=== PATIENT | male | born 1985 | race Caucasian/White ===

== ENCOUNTER 2016-12-16 01:59 | Emergency (ER) | payer BC ==
[2016-12-16 02:05] VITALS: BP 156/106
--- NOTE | 2016-12-16 02:19 | EDM.PDOC ---
ED HPI GENERAL MEDICAL PROBLEM - General Chief Complaint: Chest Pain Stated Complaint: CHEST PAIN Time Seen by Provider: 12/16/16 02:17 - History of Present Illness INITIAL COMMENTS - FREE TEXT/NARRATIVE: 31-year-old male presents emergency room with chest pain. This chest pain started around 11:00 this evening. The patient has not been feeling good for the last several days starting Wednesday evening he was feeling generally weak and tired and achy all over. When he noticed the most was leg pain however this was bilateral he did not have any leg swelling in his seem to be worse around his knees. He has not developed any redness. The patient is unaware of any recent tick bites or other exposures. The patient was seen in the walk-in clinic earlier today were he states he had a normal chest x-ray rapid strep was negative and influenza screen was negative. Left Chest Pain Score (Numeric/FACES): 6 - Related Data Allergies Allergy/AdvReac Type Severity Reaction Status Date / Time azithromycin Allergy Hives Verified 12/16/16 02:06 erythromycin base Allergy Hives Verified 12/16/16 02:06 Home Meds: Home Meds Levofloxacin [Levaquin] 500 mg PO Q24H #9 tablet 12/16/16 [Rx] Past Medical History - Past Health History Medical/Surgical History: Denies Medical/Surgical History - Past Surgical History HEENT Surgical History: Reports: Tonsillectomy Social & Family History - Tobacco Use Smoking Status *Q: Current Some Day Smoker Years of Tobacco use: 10 Packs/Tins Daily: 0 ED ROS GENERAL - Review of Systems Review Of Systems: See Below Constitutional: Reports: Malaise, Weakness HEENT: Reports: Rhinitis Respiratory: Reports: Pleuritic Chest Pain, Cough. Denies: Sputum Cardiovascular: Reports: Chest Pain. Denies: Dyspnea on Exertion, Edema Endocrine: Reports: No Symptoms GI/Abdominal: Reports: No Symptoms : Reports: No Symptoms Musculoskeletal: Reports: Leg Pain Skin: Reports: No Symptoms Neurological: Reports: No Symptoms Psychiatric: Reports: No Symptoms ED EXAM, GENERAL - Physical Exam Exam: See Below Exam Limited By: No Limitations General Appearance: Alert, No Apparent Distress Ears: Normal External Exam, Normal Canal, Hearing Grossly Normal, Normal TMs Nose: Normal Inspection, Normal Mucosa Throat/Mouth: Normal Inspection, Normal Lips Head: Atraumatic, Normocephalic Neck: Normal Inspection, Supple, Non-Tender, Full Range of Motion. No: Lymphadenopathy (L), Lymphadenopathy (R) Respiratory/Chest: No Respiratory Distress, Other (Diminished breath sounds in both bases no wheezes crackles or rhonchi.) GI/Abdominal: Normal Bowel Sounds, Soft, Non-Tender Back Exam: Normal Inspection. No: CVA Tenderness (L), CVA Tenderness (R) Extremities: Other (Both calves are more tender than would expect with palpation no obvious swelling no redness or warmth appreciated) EKG INTERPRETATION EKG Date: 12/16/16 Time: 04:25 Rhythm: NSR [place]: Normal P-Wave: Present QRS: Normal ST-T: Other (Nonspecific nondiagnostic changes) QT: Normal Comparison: NA - No Prior EKG Course - Vital Signs Last Recorded V/S: Last Vital Signs Temp 36.9 C 12/16/16 02:02 Pulse 117 H 12/16/16 02:02 Resp 18 12/16/16 02:02 BP 156/106 H 12/16/16 02:02 Pulse Ox 92 L 12/16/16 02:02 - Orders/Labs/Meds Orders: Active Orders 24 hr Category Date Time Status EKG 12 Lead [EKG Documentation Completion] [RC] STAT Care 12/16/16 02:03 Active Ang Chest [CT] Stat Exams 12/16/16 02:30 Taken Chest 1V Frontal [CR] Stat Exams 12/16/16 02:09 Taken Sodium Chloride 0.9% [Normal Saline] 1,000 ml Med 12/16/16 02:45 Active IV ASDIRECTED Sodium Chloride 0.9% [Saline Flush] Med 12/16/16 03:04 Active 10 ml FLUSH ONETIME PRN Medication Orders Sodium Chloride (Normal Saline) 1,000 mls @ 100 mls/hr IV ASDIRECTED CJ Last Admin: 12/16/16 02:38 Dose: 100 mls/hr Sodium Chloride (Saline Flush) 10 ml FLUSH ONETIME PRN PRN Reason: IV Flush Labs: Laboratory Tests 12/16/16 12/16/16 12/16/16 Range/Units 02:05 02:05 02:05 WBC 14.72 H (4.23-9.07) K/mm3 RBC 5.27 (4.63-6.08) M/mm3 Hgb 15.5 (13.7-17.5) gm/L Hct 46.6 (40.1-51.0) % MCV 88.4 (79.0-92.2) fl MCH 29.4 (25.7-32.2) pg MCHC 33.3 (32.2-35.5) g/dl RDW Std Deviation 43.6 (35.1-43.9) fL Plt Count 164 (163-337) K/mm3 MPV 11.0 (9.4-12.3) fl Neutrophils % (Manual) 76 H (40-60) % Band Neutrophils % 1 (0-10) % Lymphocytes % (Manual) 13 L (20-40) % Atypical Lymphs % 0 % Monocytes % (Manual) 9 (2-10) % Eosinophils % (Manual) 1 (0.8-7.0) % Basophils % (Manual) 0 L (0.2-1.2) Platelet Estimate Adequate RBC Morph Comment Normal PT 11.0 (8.0-13.0) SECONDS INR 1.01 APTT 29 (22-36) SECONDS Sodium 137 (136-145) mEq/L Potassium 3.5 (3.5-5.1) mEq/L Chloride 100 (98-107) mEq/L Carbon Dioxide 24 (21-32) mEq/L Anion Gap 16.5 H (5-15) BUN 15 (7-18) mg/dL Creatinine 1.1 (0.7-1.3) mg/dL Est Cr Clr Drug Dosing 99.55 mL/min Estimated GFR (MDRD) > 60 (>60) mL/min BUN/Creatinine Ratio 13.6 L (14-18) Glucose 157 H (74-106) mg/dL Calcium 9.0 (8.5-10.1) mg/dL Total Bilirubin 0.8 (0.2-1.0) mg/dL AST 13 L (15-37) U/L ALT 36 (16-63) U/L Alkaline Phosphatase 97 (46-116) U/L Troponin I < 0.017 (0.00-0.056) ng/mL Total Protein 8.0 (6.4-8.2) g/dl Albumin 3.6 (3.4-5.0) g/dl Globulin 4.4 gm/dL Albumin/Globulin Ratio 0.8 L (1-2) Meds: Medications Generic Name Dose Route Start Last Admin Trade Name Timothy PRN Reason Stop Dose Admin Sodium Chloride 1,000 mls @ 100 mls/hr 12/16/16 02:45 12/16/16 02:38 Normal Saline IV 100 mls/hr ASDIRECTED CJ Administration Sodium Chloride 10 ml 12/16/16 03:04 Saline Flush FLUSH ONETIME PRN IV Flush Discontinued Medications Generic Name Dose Route Start Last Admin Trade Name Timothy PRN Reason Stop Dose Admin Sodium Chloride 500 mls @ 999 mls/hr 12/16/16 02:31 12/16/16 02:38 Normal Saline IV 12/16/16 03:01 999 mls/hr .BOLUS ONE Administration Sodium Chloride 100 mls @ 4 mls/sec 12/16/16 03:04 Normal Saline IV 12/16/16 03:05 ONETIME ONE Iopamidol 100 ml 12/16/16 03:04 Isovue-370 (76%) IVPUSH 12/16/16 03:05 ONETIME ONE Iopamidol 40 ml 12/16/16 03:04 Isovue-370 (76%) IVPUSH 12/16/16 03:05 ONETIME ONE - Re-Assessments/Exams Free Text/Narrative Re-Assessment/Exam: 12/16/16 04:04 A CTA of the chest was obtained initial chest x-ray was difficult to interpret. He has high diaphragm on the left side poor inspiratory effort. His well's score was 4.5 getting points for leg pain and tachycardia given this d-dimer was deferred and we will write to CTA the results of this are negative for a pulmonary embolism however do show areas of bibasilar atelectasis or infiltrate consistent with bibasilar pneumonia. 12/16/16 04:34 I had them repeat the EKG had several hard time measuring his QT with a wandering baseline second EKG shows a QT of 326 QTC of 435 this is much more realistic no evidence of ischemia. Patient will be started on Levaquin he was instructed on how to use an albuterol MDI and we will discharge. Departure - Departure Time of Disposition: 04:41 Disposition: Home, Self-Care 01 Clinical Impression: Chest wall pain, Pneumonia Referrals: PCP,None [Primary Care Provider] - Elva Vega, [employer] [ED Midlevel Provider] - Forms: ED Department Discharge Additional Instructions: Return to the emergency room with any questions problems worsening symptoms. Use the albuterol inhaler 2 puffs every 4 hours while awake. You have been started on Levaquin, this is an antibiotic take it once daily for 10 days your first dose was given in the emergency room. Follow-up with regular physician for recheck on Wednesday - My Orders Last 24 Hours: My Active Orders 12/16/16 02:03 EKG 12 Lead [EKG Documentation Completion] [RC] STAT 12/16/16 02:09 Chest 1V Frontal [CR] Stat 12/16/16 02:30 Ang Chest [CT] Stat 12/16/16 02:45 Sodium Chloride 0.9% [Normal Saline] 1,000 ml IV ASDIRECTED 12/16/16 03:04 Sodium Chloride 0.9% [Saline Flush] 10 ml FLUSH ONETIME PRN - Assessment/Plan Last 24 Hours: My Active Orders 12/16/16 02:03 EKG 12 Lead [EKG Documentation Completion] [RC] STAT 12/16/16 02:09 Chest 1V Frontal [CR] Stat 12/16/16 02:30 Ang Chest [CT] Stat 12/16/16 02:45 Sodium Chloride 0.9% [Normal Saline] 1,000 ml IV ASDIRECTED 12/16/16 03:04 Sodium Chloride 0.9% [Saline Flush] 10 ml FLUSH ONETIME PRN
[2016-12-16] MEDS ORDERED: Sodium Chloride 0.9% 500 ML IV ONE (02:31)
[2016-12-16] MEDS ORDERED: Sodium Chloride 0.9% 1,000 ML IV SCH (02:45)
[2016-12-16] MEDS ORDERED: Sodium Chloride 0.9% 100 ML IV ONE (03:04)
[2016-12-16] MEDS ORDERED: Iopamidol 755 Mg/ML 100 ML Bottle IVPUSH ONE (03:04)
[2016-12-16] MEDS ORDERED: Sodium Chloride 0.9% 10 ML Syringe FLUSH PRN (03:04)
[2016-12-16] MEDS ORDERED: Iopamidol 755 MG/ML 50 ML Bottle IVPUSH ONE (03:04)
[2016-12-16] MEDS ORDERED: Albuterol 6.7 GM Inhaler INH ONE (04:08)
[2016-12-16] MEDS ORDERED: Levofloxacin 500 MG Tab PO ONE (04:37)
--- NOTE | 2016-12-16 08:01 | CT ---
CT chest Technique: Multiple axial sections through the chest were obtained. Intravenous contrast was utilized. Study performed as a pulmonary angiogram protocol. Findings: Pulmonary arteries are opacified. No filling defects are seen to indicate pulmonary embolism. Mediastinum and hilar regions are unremarkable. No axillary adenopathy is seen. No pericardial thickening is seen. Small portion of the visualized upper abdominal structures are within normal limits. Increased density is identified within both lungs, worse on the left side. Upper lungs are clear. No pleural effusions are seen. Bone window settings were reviewed which appear within normal limits for the patient's age. Impression: 1. No findings of pulmonary embolism. 2. Increased density within both lung bases, with findings worse on the left side. This may represent atelectasis but difficult to exclude pneumonia if patient has infectious symptoms. Diagnostic code #3 Agree with preliminary report issued by [employer] ([facility] preliminary report dictated on 12/16/16, 4:59 AM Central Time)
--- NOTE | 2016-12-16 08:01 | CR ---
Chest: Portable view of the chest was obtained. Comparison: Previous chest x-ray of 01/30/10. Minimal left basilar atelectasis is seen. Lungs otherwise are clear. Heart size and mediastinum are normal. Bony structures are grossly intact. Impression: 1. Slight left basilar atelectasis. 2. Nothing acute is otherwise seen on portable chest x-ray. Diagnostic code #2
== END 2016-12-16 05:03 | disposition home or self-care (01) ==
LOC: JD.ED 01:59
DX: J18.9 Pneumonia, unspecified organism (principal); F17.290 Nicotine dependence, other tobacco product, uncomplicated; Z98.890 Other specified postprocedural states; Z88.1 Allergy status to other antibiotic agents
CPT/HCPCS: 36415; 71010; 71275; 80053; 84484; 85025; 85610; 85730; 93005; 94664; 96360; 96361; 99285; A9270; J7030; J7040; Q9967; 99284

== ENCOUNTER 2021-10-22 15:35 | Inpatient (IN) | payer BC ==
[2021-10-22] MEDS ORDERED: Sodium Chloride 0.9% 1,000 ML IV STA (16:05)
[2021-10-22] MEDS ORDERED: HYDROmorphone 1 MG/ML Syringe IVPUSH ONE (16:07)
[2021-10-22] MEDS ORDERED: Ondansetron 4 MG/2 ML SDV IVPUSH ONE (16:07)
[2021-10-22] MEDS ORDERED: Sodium Chloride 0.9% 10 ML Syringe FLUSH ONE (16:16)
[2021-10-22] MEDS ORDERED: Iopamidol 612 MG/ML 100 ML Bottle IVPUSH ONE (16:16)
[2021-10-22] MEDS: Sodium Chloride 0.9% 10 ML Syringe FLUSH PRN ×2 (16:29→22:36)
[2021-10-22] MEDS ORDERED: Piperacillin/Tazobactam 4.5 GM in Sodium Chloride 0.9% 100 ML IV ONE (16:53)
[2021-10-22] MEDS: Piperacillin/Tazobactam 4.5 GM in Sodium Chloride 0.9% 100 ML IV SCH ×3 (17:10→22:06)
[2021-10-22] MEDS ORDERED: Ondansetron 4 MG Tab.DIS PO PRN (18:21)
[2021-10-22] MEDS: HYDROmorphone 0.5 MG/0.5 ML Syringe IVPUSH PRN (20:30)
[2021-10-22] MEDS: Lactated Ringers 1,000 ML IV SCH (20:43)
[2021-10-22] MEDS: Acetaminophen 325 MG Tab PO PRN (20:49)
[2021-10-22] MEDS: Heparin Sodium 5,000 Units/ML Vial SUBCUT SCH (22:35)
[2021-10-23] MEDS: HYDROmorphone 0.5 MG/0.5 ML Syringe IVPUSH PRN ×2 (01:37→05:11)
[2021-10-23] MEDS: Lactated Ringers 1,000 ML IV SCH (03:26)
[2021-10-23] MEDS: Piperacillin/Tazobactam 4.5 GM in Sodium Chloride 0.9% 100 ML IV SCH ×3 (05:11→21:33)
[2021-10-23] MEDS: D5 1/2 NS w/ 20 mEq/L KCl 1,000 ML IV SCH ×2 (08:19→20:11)
[2021-10-23] MEDS: Ketorolac 30 MG/ML SDV IVPUSH SCH ×3 (08:20→20:12)
[2021-10-23] MEDS: Heparin Sodium 5,000 Units/ML Vial SUBCUT SCH ×2 (08:32→14:21)
[2021-10-23] MEDS ORDERED: Magnesium Sulfate/Water 2 GM in Premix Bag 1 BAG IV ONE (09:00)
[2021-10-24] MEDS: Ketorolac 30 MG/ML SDV IVPUSH SCH ×4 (02:33→22:11)
[2021-10-24] MEDS: Heparin Sodium 5,000 Units/ML Vial SUBCUT SCH ×4 (02:33→22:11)
[2021-10-24] MEDS: D5 1/2 NS w/ 20 mEq/L KCl 1,000 ML IV SCH ×3 (03:59→20:30)
[2021-10-24] MEDS: Piperacillin/Tazobactam 4.5 GM in Sodium Chloride 0.9% 100 ML IV SCH ×3 (05:57→22:11)
[2021-10-25] MEDS: Ketorolac 30 MG/ML SDV IVPUSH SCH ×4 (03:33→22:05)
[2021-10-25] MEDS: D5 1/2 NS w/ 20 mEq/L KCl 1,000 ML IV SCH ×3 (04:40→20:32)
[2021-10-25] MEDS: Heparin Sodium 5,000 Units/ML Vial SUBCUT SCH ×3 (05:31→22:07)
[2021-10-25] MEDS: Piperacillin/Tazobactam 4.5 GM in Sodium Chloride 0.9% 100 ML IV SCH ×3 (06:55→22:07)
[2021-10-25] MEDS: HYDROmorphone 0.5 MG/0.5 ML Syringe IVPUSH PRN (08:13)
[2021-10-25] MEDS ORDERED: Ondansetron 4 MG/2 ML SDV ONE (08:22)
[2021-10-25] MEDS: Ondansetron 4 MG/2 ML SDV IVPUSH PRN (08:27)
[2021-10-26] MEDS: Ketorolac 30 MG/ML SDV IVPUSH SCH ×4 (03:46→21:18)
[2021-10-26] MEDS: D5 1/2 NS w/ 20 mEq/L KCl 1,000 ML IV SCH ×3 (03:48→19:45)
[2021-10-26] MEDS: Heparin Sodium 5,000 Units/ML Vial SUBCUT SCH ×3 (05:54→21:19)
[2021-10-26] MEDS: Piperacillin/Tazobactam 4.5 GM in Sodium Chloride 0.9% 100 ML IV SCH ×3 (06:21→21:17)
[2021-10-26] MEDS: HYDROmorphone 0.5 MG/0.5 ML Syringe IVPUSH PRN (07:44)
[2021-10-26] MEDS: Ondansetron 4 MG/2 ML SDV IVPUSH PRN (07:49)
[2021-10-26] MEDS ORDERED: Magnesium Sulfate/Water 2 GM in Premix Bag 1 BAG IV ONE (10:41)
[2021-10-27] MEDS: D5 1/2 NS w/ 20 mEq/L KCl 1,000 ML IV SCH ×2 (04:19→12:23)
[2021-10-27] MEDS: Ketorolac 30 MG/ML SDV IVPUSH SCH ×3 (04:19→17:44)
[2021-10-27] MEDS: Piperacillin/Tazobactam 4.5 GM in Sodium Chloride 0.9% 100 ML IV SCH ×3 (05:23→21:53)
[2021-10-27] MEDS: Heparin Sodium 5,000 Units/ML Vial SUBCUT SCH ×3 (05:23→21:49)
[2021-10-27] MEDS: HYDROmorphone 0.5 MG/0.5 ML Syringe IVPUSH PRN ×2 (07:47→14:04)
[2021-10-27] MEDS ORDERED: Dicyclomine 20 MG/2 ML SDV IM ONE (08:15)
[2021-10-27] MEDS: Ondansetron 4 MG/2 ML SDV IVPUSH PRN (09:54)
[2021-10-27] MEDS ORDERED: HYDROmorphone 1 MG/ML Syringe IVPUSH ONE (10:05)
[2021-10-27] MEDS: Acetaminophen 325 MG Tab PO PRN (10:12)
[2021-10-27] MEDS ORDERED: fentaNYL 100 MCG/2 ML SDV ONE (15:21)
[2021-10-27] MEDS ORDERED: Lidocaine 1% 5 ML VIAL ONE (15:36)
[2021-10-27] MEDS ORDERED: fentaNYL 250 MCG/5 ML SDV ONE ×2 (15:36→17:39)
[2021-10-27] MEDS ORDERED: Ondansetron 4 MG/2 ML SDV ONE (15:36)
[2021-10-27] MEDS ORDERED: Midazolam 1 MG/ML 2 ML SDV ONE (15:36)
[2021-10-27] MEDS ORDERED: Rocuronium 50 MG/5 ML Vial ONE ×2 (15:36→17:20)
[2021-10-27] MEDS ORDERED: Propofol 200 MG/20 ML SDV ONE (15:36)
[2021-10-27] MEDS ORDERED: Lidocaine 1% with EPINEPHrine 1:100,000 20 ML MDV ONE ×2 (15:51→15:57)
[2021-10-27] MEDS ORDERED: Bupivacaine 0.5%/EPINEPHrine 1:200,000 50 ML MDV ONE (15:51)
[2021-10-27] MEDS ORDERED: Succinylcholine 200 MG/10 ML MDV ONE (16:08)
[2021-10-27] MEDS ORDERED: Ketamine 500 mg/10 ML MDV ONE (16:21)
[2021-10-27] MEDS ORDERED: Lactated Ringers 1,000 ML ONE ×2 (16:25→16:47)
[2021-10-27] MEDS ORDERED: Dexamethasone 4 MG/ML 5 ML MDV ONE (16:25)
[2021-10-27] MEDS ORDERED: Ondansetron 4 MG/2 ML SDV IVPUSH PRN (16:38)
[2021-10-27] MEDS ORDERED: HYDROmorphone 0.5 MG/0.5 ML Syringe IVPUSH PRN ×2 (16:38→19:48)
[2021-10-27] MEDS ORDERED: fentaNYL 100 MCG/2 ML SDV IVPUSH PRN (16:38)
[2021-10-27] MEDS ORDERED: HYDROmorphone 0.5 MG/0.5 ML Syringe ONE (16:56)
[2021-10-27] MEDS ORDERED: ePHEDrine 50 MG/ML SDV ONE (18:04)
[2021-10-27] MEDS ORDERED: Neostigmine Methylsulfate 10 MG/10 ML MDV ONE (18:17)
[2021-10-27] MEDS ORDERED: oxyCODONE 5 MG Tab PO PRN (19:48)
[2021-10-27] MEDS ORDERED: Ketorolac 30 MG/ML SDV IVPUSH ONE (20:00)
[2021-10-27] MEDS ORDERED: Acetaminophen 325 MG Tab PO SCH (20:00)
[2021-10-27] MEDS: Ondansetron 4 MG Tab.DIS PO SCH (21:50)
[2021-10-28] MEDS: D5 1/2 NS w/ 20 mEq/L KCl 1,000 ML IV SCH ×3 (01:12→17:22)
[2021-10-28] MEDS ORDERED: Ibuprofen 600 MG Tab PO SCH (02:00)
[2021-10-28] MEDS: Ondansetron 4 MG Tab.DIS PO SCH ×5 (02:26→19:54)
[2021-10-28] MEDS: Ibuprofen 600 MG Tab PO SCH ×4 (02:27→19:53)
[2021-10-28] MEDS: Piperacillin/Tazobactam 4.5 GM in Sodium Chloride 0.9% 100 ML IV SCH ×3 (05:44→23:25)
[2021-10-28] MEDS: Acetaminophen 325 MG Tab PO SCH ×4 (05:45→23:21)
[2021-10-28] MEDS: Heparin Sodium 5,000 Units/ML Vial SUBCUT SCH ×3 (05:48→23:22)
[2021-10-29] MEDS: Ibuprofen 600 MG Tab PO SCH ×2 (01:55→07:58)
[2021-10-29] MEDS: Ondansetron 4 MG Tab.DIS PO SCH ×2 (01:57→20:23)
[2021-10-29] MEDS: D5 1/2 NS w/ 20 mEq/L KCl 1,000 ML IV SCH (01:58)
[2021-10-29] MEDS: Heparin Sodium 5,000 Units/ML Vial SUBCUT SCH (05:33)
[2021-10-29] MEDS: Piperacillin/Tazobactam 4.5 GM in Sodium Chloride 0.9% 100 ML IV SCH (05:34)
[2021-10-29] MEDS: Acetaminophen 325 MG Tab PO SCH ×2 (05:40→10:05)
[2021-10-29 09:30] VITALS: BP 130/92; PULSE 69
== END 2021-10-29 13:10 | disposition home or self-care (01) | DRG 231 ==
LOC: JD.ED 15:35 → JD.MS 18:16
PROVIDERS: ADMIT Surgery; ATTEND Surgery
PROC: 0DTN0ZZ Resection of Sigmoid Colon, Open Approach (ICD-10-PCS; principal; 2021-10-27)
PROC: 0D1N0Z4 Bypass Sigmoid Colon to Cutaneous, Open Approach (ICD-10-PCS; 2021-10-27)
DX: K57.20 Diverticulitis of large intestine with perforation and abscess without bleeding (principal); K66.0 Peritoneal adhesions (postprocedural) (postinfection); E66.9 Obesity, unspecified; Z68.30 Body mass index [BMI] 30.0-30.9, adult; Z79.1 Long term (current) use of non-steroidal anti-inflammatories (NSAID); Z79.899 Other long term (current) drug therapy; Z90.89 Acquired absence of other organs
CPT/HCPCS: 00790; 36415; 74176; 74176-26; 74177; 74177-26; 80048; 80053; 81001; 83690; 83735; 84100; 85025; 94761; 96361; 96365; 96375; 99140; 99283; 99285-25; A9270-GY; J0330; J0500; J1100; J1170; J1644; J1885; J2250; J2405; J2543; J2704; J2710; J3010; J3475; J3480; J3490; J7030; J7120; Q9967

== ENCOUNTER 2022-03-25 09:48 | Inpatient (IN) | payer BC, OTHER ==
[~2022-03-25 09:48] MED LIST: Acetaminophen 325 MG Tab PO SCH; Gabapentin 300 MG Cap PO SCH; Lactated Ringers 1,000 ML IV SCH; Lidocaine 1%/Sod Bicarbonate in NS 8.4% 1 ML Syringe IDERM PRN; Sodium Chloride 0.9% 10 ML Syringe FLUSH PRN; metroNIDAZOLE/Normal Saline 500 MG in Premix Bag 1 BAG IV SCH
[2022-03-25] MEDS ORDERED: Lidocaine 1% 10 ML MDV ONE (10:22)
[2022-03-25] MEDS ORDERED: Bupivacaine 0.5%/EPINEPHrine 1:200,000 50 ML MDV ONE (10:23)
[2022-03-25] MEDS ORDERED: Propofol 200 MG/20 ML SDV ONE (10:26)
[2022-03-25] MEDS ORDERED: Dexamethasone 4 MG/ML 5 ML MDV ONE (10:27)
[2022-03-25] MEDS ORDERED: Ondansetron 4 MG/2 ML SDV ONE (10:27)
[2022-03-25] MEDS ORDERED: Ketamine 500 mg/10 ML MDV ONE (10:27)
[2022-03-25] MEDS ORDERED: Midazolam 1 MG/ML 2 ML SDV ONE (10:27)
[2022-03-25] MEDS ORDERED: Rocuronium 50 MG/5 ML Vial ONE ×3 (10:27→14:52)
[2022-03-25] MEDS ORDERED: Dexmedetomidine 200 MCG/2 ML SDV ONE (10:27)
[2022-03-25] MEDS ORDERED: fentaNYL 100 MCG/2 ML SDV ONE ×2 (10:27→15:54)
[2022-03-25] MEDS ORDERED: Lidocaine 1% 5 ML VIAL ONE (10:27)
[2022-03-25] MEDS ORDERED: ceFAZolin 2 GM Vial ONE ×2 (10:39→15:47)
[2022-03-25] MEDS ORDERED: Sugammadex Sodium 200 MG/2 ML VIAL ONE (11:01)
[2022-03-25] MEDS ORDERED: ePHEDrine 50 MG/ML SDV ONE (12:03)
[2022-03-25] MEDS ORDERED: Lactated Ringers 1,000 ML ONE ×2 (12:21→13:59)
[2022-03-25] MEDS ORDERED: HYDROmorphone 0.5 MG/0.5 ML Syringe IVPUSH PRN ×2 (13:24→16:45)
[2022-03-25] MEDS ORDERED: fentaNYL 100 MCG/2 ML SDV IVPUSH PRN ×2 (13:24→16:45)
[2022-03-25] MEDS ORDERED: Ondansetron 4 MG/2 ML SDV IVPUSH PRN ×2 (13:24→16:45)
[2022-03-25] MEDS ORDERED: Ketorolac 30 MG/ML SDV ONE (13:36)
[2022-03-25] MEDS ORDERED: oxyCODONE 5 MG Tab PO PRN (16:11)
[2022-03-25] MEDS ORDERED: Acetaminophen 325 MG Tab PO SCH (16:15)
[2022-03-25] MEDS: Sodium Chloride 0.9% 10 ML Syringe FLUSH SCH (18:34)
[2022-03-25] MEDS: Ondansetron 4 MG Tab.DIS PO SCH ×2 (18:35→21:42)
[2022-03-25] MEDS: Acetaminophen 325 MG Tab PO SCH ×2 (18:35→21:40)
[2022-03-25] MEDS: Ibuprofen 600 MG Tab PO SCH (19:48)
[2022-03-25] MEDS: Benzocaine/Cetylpyridinium/Menthol Lozenge MUCMEM PRN (21:42)
[2022-03-25] MEDS: D5 1/2 NS w/ 20 mEq/L KCl 1,000 ML IV SCH (22:13)
[2022-03-26] MEDS: Ibuprofen 600 MG Tab PO SCH ×4 (00:25→18:41)
[2022-03-26] MEDS: Acetaminophen 325 MG Tab PO SCH ×6 (00:25→20:56)
[2022-03-26] MEDS: Ondansetron 4 MG Tab.DIS PO SCH ×3 (04:48→16:16)
[2022-03-26] MEDS: Heparin Sodium 5,000 Units/ML Vial SUBCUT SCH ×2 (08:56→16:17)
[2022-03-26] MEDS: D5 1/2 NS w/ 20 mEq/L KCl 1,000 ML IV SCH (11:22)
[2022-03-27] MEDS: Heparin Sodium 5,000 Units/ML Vial SUBCUT SCH ×2 (00:35→08:31)
[2022-03-27] MEDS: Acetaminophen 325 MG Tab PO SCH ×4 (00:35→12:16)
[2022-03-27] MEDS: Ibuprofen 600 MG Tab PO SCH ×3 (00:36→12:16)
[2022-03-27] MEDS: Ondansetron 4 MG Tab.DIS PO SCH ×2 (05:19→12:17)
[2022-03-27] MEDS: Benzocaine/Cetylpyridinium/Menthol Lozenge MUCMEM PRN (08:31)
[2022-03-27 12:41] VITALS: BP 120/84; PULSE 66
== END 2022-03-27 13:18 | disposition home or self-care (01) | DRG 231 ==
LOC: JD.SDS 09:48 → JD.MS 09:50
PROVIDERS: ADMIT Surgery; ATTEND Surgery
PROC: 0DBP4ZZ Excision of Rectum, Percutaneous Endoscopic Approach (ICD-10-PCS; principal; 2022-03-25)
PROC: 0DBN4ZZ Excision of Sigmoid Colon, Percutaneous Endoscopic Approach (ICD-10-PCS; 2022-03-25)
DX: Z43.3 Encounter for attention to colostomy (principal); Z98.890 Other specified postprocedural states; Z87.19 Personal history of other diseases of the digestive system; Z87.891 Personal history of nicotine dependence
CPT/HCPCS: 00790; 36415; 80051; 85025; 94761; A9270-GY; J0690; J1100; J1644; J1885; J2250; J2405; J2704; J3010; J3480; J3490; J7120